=== PATIENT | female | born 1995 | race Two or more races ===

== ENCOUNTER 2017-11-20 17:28 | Emergency (ER) | payer MEDICAID ==
[2017-11-20 17:41] VITALS: RESP 16
--- NOTE | 2017-11-20 17:55 | EDPHY ---
H & P Stated Complaint: Possibly Time Seen by Provider: 11/20/17 17:49 HPI/ROS: CHIEF COMPLAINT: Spotting, questionable status HISTORY OF PRESENT ILLNESS: The patient presents the ED for evaluation of a possible intrauterine . The patient has had subjective sensation of . She has had a slightly abnormal cycle with a heavy period and spotting. The patient denies dysuria. She denies any abdominal pain. She denies significant past medical history. She attempted to be seen at [facility] today however was unable to establish an appointment. REVIEW OF SYSTEMS: A comprehensive 10 point review of systems is otherwise negative aside from elements mentioned in the history of present illness. Source: Patient Exam Limitations: No limitations - Personal History LMP (Females 10-55): Current Tetanus/Diphtheria Vaccine: Yes - Medical/Surgical History Hx Asthma: No Hx Chronic Respiratory Disease: No Hx Diabetes: No Hx Cardiac Disease: No Hx Renal Disease: No Hx Cirrhosis: No Hx Alcoholism: No Hx HIV/AIDS: No Hx Splenectomy or Spleen Trauma: No Other PMH: denies - Social History Smoking Status: Never smoked - Physical Exam Exam: General Appearance: Alert, no distress Eyes: Pupils equal and round no pallor or injection ENT, Mouth: Mucous membranes moist Respiratory: There are no retractions, lungs are clear to auscultation Cardiovascular: Regular rate and rhythm Gastrointestinal: Abdomen is soft and nontender, no masses, bowel sounds normal Neurological: A&O, normal motor function, normal sensory exam, normal cranial nerves Skin: Warm and dry, no rashes Musculoskeletal: Neck is supple nontender Extremities: symmetrical, full range of motion Constitutional: Initial Vital Signs Temperature (C) 37.1 C 11/20/17 17:36 Heart Rate 73 11/20/17 17:36 Respiratory Rate 16 11/20/17 17:36 Blood Pressure 98/57 L 11/20/17 17:36 O2 Sat (%) 94 11/20/17 17:36 O2 Delivery Mode Room Air Allergies/Adverse Reactions: No Known Allergies Allergy (Unverified 11/20/17 17:36) Home Medications: Medication Instructions Recorded NK [No Known Home Meds] 11/20/17 Vits W-Ca,Fe,FA(<1Mg) 11/20/17 Medical Decision Making ED Course/Re-evaluation: The patient's urine test is negative. She has no complaints of active bleeding. Her abdominal examination is benign. I do not feel that additional workup is indicated at this point time. She is advised to follow up as needed with [facility]. Differential Diagnosis: Differential diagnosis considered includes ectopic , intrauterine , dysfunctional uterine bleeding Departure - Departure Disposition: Home, Routine, Self-Care Clinical Impression: Uterine bleeding Condition: Good Instructions: Menorrhagia (ED) Additional Instructions: 1. Return to the ED for abdominal pain, fever, vomiting or heavy vaginal bleeding. 2. Your urine test was negative in the emergency department. 3. Please follow up with your primary care provider as needed.
[2017-11-20 18:59] VITALS: BP 130/80; PULSE 70; TEMP 98.6; O2SAT 95
== END 2017-11-20 18:59 | disposition home or self-care (01) ==
DX: N93.9 Abnormal uterine and vaginal bleeding, unspecified (principal)